=== PATIENT | male | born 1975 | race Caucasian/White ===

== ENCOUNTER 2024-01-01 18:35 | Inpatient (IN) | payer OTHER ==
[~2024-01-01] VITALS: Ht 177.8 cm; Wt 115.6 kg
[2024-01-01] MEDS ORDERED: Ondansetron HCl 2 MG / ML 2ML Vial IV PRN (18:45)
[2024-01-01] MEDS ORDERED: HYDROmorphone HCl/Pf 1MG SYR IV ONE ×2 (19:05→20:05)
[2024-01-01] MEDS ORDERED: NS 1,000 ML IV SCH ×3 (19:05→22:20)
[2024-01-01 19:07] LABS: BASOPHILS PERCENT AUTO 0 % (0-2); EOSINOPHILS ABSOLUTE AUTO 0.07 K/mm3 (0.00-0.68); EOSINOPHILS PERCENT AUTO 0 % (0-6); Hemoglobin 15.8 g/dL (13.5-17.5); IMMATURE GRAN ABSOLUTE AUTO 0.25 K/mm3 (0.00-0.10); IMMATURE GRAN PERCENT AUTO 1 % (0-1); LYMPHOCYTES ABSOLUTE AUTO 0.97 K/mm3 (0.84-5.20); LYMPHOCYTES PERCENT AUTO 3 % (21-46); MONOCYTES ABSOLUTE AUTO 1.81 K/mm3 (0.16-1.47); MONOCYTES PERCENT AUTO 6 % (4-13); Mean Corpuscular HGB Conc 33.6 g/dL (31.5-36.5); Mean Corpuscular Volume 86 fL (80-100); Mean Platelet Volume 9.8 fL (9.1-12.4); NEUTROPHILS ABSOLUTE AUTO 26.02 K/mm3 (1.96-9.15); NEUTROPHILS PERCENT AUTO 89 % (41-73); Platelet Count 324 K/mm3 (150-400); RDW Coefficient Variation 13.6 % (11.7-14.2); Red Blood Cell Count 5.45 M/mm3 (4.30-5.90); White Blood Cell Count 29.22 K/mm3 (4.00-11.30)
[2024-01-01 19:09] LABS: Source, Urine Clean Catch
[2024-01-01 19:13] LABS: Appearance, Urine Hazy (Clear); Blood, Urine 3+ (Neg); Glucose Qualitative, Urine 1+ (Neg); Ketones, Urine 4+ (Neg); Leukocyte Esterase, Urine 1+ (Neg); Nitrite, Urine Neg (Neg); Protein, Urine 3+ (Neg); Urobilinogen, Urine 4+ (Normal)
[2024-01-01 19:18] LABS: Bilirubin, Urine 2+ (Neg)
[2024-01-01 19:19] LABS: Color, Urine Amber (P-Yellow)
[2024-01-01 19:20] LABS: Amorphous Mod (0-Heavy); Bacteria Mod /hpf; Mucus Light (0-Heavy); Squamous Epithelial Cells Rare /hpf (Few)
[2024-01-01 19:33] LABS: Albumin, Blood 2.9 g/dL (3.4-5.0); Albumin/Globulin Ratio 0.5 (0.8-1.8); Bilirubin, Total 0.7 mg/dL (0.1-1.0); Bun/Creatinine Ratio 13.8 (12.0-20.0); Calcium, Blood 9.5 mg/dL (8.5-10.1); Creatinine, Blood 0.8 mg/dL (0.60-1.20); Globulin, Blood 6.1 g/dL (2.2-4.0)
[2024-01-01] MEDS ORDERED: Piperacillin/Tazobactam Sod 4.5 GM in NS 100 ML IV ONE (20:00)
[2024-01-01 20:03] LABS: Influenza A, PCR NEGATIVE (NEGATIVE); Influenza B, PCR NEGATIVE (NEGATIVE); Resp Syncytial Virus, PCR NEGATIVE (NEGATIVE); SARS-Cov-2 (COVID-19) PCR, MMC NEGATIVE (NEGATIVE)
[2024-01-01] MEDS ORDERED: Acetaminophen 325 MG TABLET PO ONE (22:50)
[2024-01-01] MEDS ORDERED: FentaNYL Citrate 50 MCG/ML 2 ML Injection IV ONE (23:20)
[2024-01-01 23:42] VITALS: BP 129/83
--- NOTE | 2024-01-02 00:26 | NUR ---
ARRIVAL TO UNIT AFTER RECEIVING REPORT FROM NANDO OTERO, PATIENT ARRIVED TO UNIT VIA ED [facility] AT APPROX 2335. PATIENT ALERT AND ORIENTED X4. ABLE TO STAND AND TRANSFER FROM [facility] TO RESTROOM AND TO BED. REPOSITIONS HIMSELF INDEPENDENTLY IN BED. REPORTS 5/10 R UPPER ABDOMINAL PAIN RADIATING TO HIS BACK. PAIN IS TOLERABLE AT THIS TIME WITH ADMINISTERED IV FENTANYL PRIOR TO TRANSFER TO UNIT. DENIES NAUSEA/VOMITING. ABD TENDER RUQ. HYPOACTIVE BOWEL TONES. TELEMETRY SHOWING SINUS/SINUS TACH 90s-110s. BP STABLE. DENIES CHEST PAIN, PRESSURE. ON ROOM AIR, SATs >90%. RESPIRATIONS EVEN, UNLABORED. REPORTS THAT HE IS A 1/2 PPD DAILY SMOKER. EDUCATED ON NO SMOKING POLICY. PATIENT DENIES ANY POSSESSION OF IGNITION SOURCES. OFFERED NICOTINE PATCH, DENIES AT THIS TIME. CALL LIGHT IN REACH.
[2024-01-02] MEDS ORDERED: FentaNYL Citrate 50 MCG/ML 2 ML Injection IV PRN ×2 (00:35→05:35)
[2024-01-02] MEDS ORDERED: Ondansetron HCl 2 MG / ML 2ML Vial IV PRN (00:35)
[2024-01-02] MEDS ORDERED: NS 1,000 ML IV SCH (00:35)
[2024-01-02 03:31] LABS: U Amphetamine Screen Not Detected; U Barbituate Screen Not Detected; U Benzodiazapine Screen Not Detected; U Buprenorphine Screen Not Detected; U Cannabinoids Screen Not Detected; U Cocaine Screen Not Detected; U Methadone Screen Not Detected; U Methamphetamine Screen Not Detected; U Opiates Screen Not Detected; U Oxycodone Screen Not Detected; U Phencyclidine Screen Not Detected
[2024-01-02 03:48] VITALS: BP 116/80
[2024-01-02 04:33] LABS: Hematocrit 42.1 % (37.0-53.0); Hemoglobin 13.9 g/dL (13.5-17.5); Mean Corpuscular HGB 29.1 pg (26.0-34.0); Mean Corpuscular Volume 88 fL (80-100); Mean Platelet Volume 10.1 fL (9.1-12.4); Platelet Count 304 K/mm3 (150-400); RDW Coefficient Variation 13.7 % (11.7-14.2); RDW Standard Deviation 44.4 fL (35.1-46.3); Red Blood Cell Count 4.77 M/mm3 (4.30-5.90); White Blood Cell Count 25.05 K/mm3 (4.00-11.30)
[2024-01-02 04:56] LABS: CHOL/HDL RATIO 4.7; Cholesterol 71 mg/dL (50-200); HDL Cholesterol 15 mg/dL (>39); LDL/HDL RATIO 2.5; Low Density Lipoprotein Chol 37 mg/dL (0-110); Triglycerides 96 mg/dL (30-160); Very Low Density Lipoprot Chol 19 mg/dL (6-32)
[2024-01-02 05:03] LABS: Ethanol (Alcohol), Blood, Med <3 mg/dL
[2024-01-02 05:09] LABS: BAND PERCENT MAN 8 % (0-8); BASOPHILS PERCENT MAN 0 % (0-2); EOSINOPHILS PERCENT MAN 0 % (0-6); LYMPHOCYTES ABSOLUTE MAN 1.25 K/mm3 (0.84-5.20); LYMPHOCYTES PERCENT MAN 5 % (21-46); MONOCYTES ABSOLUTE MAN 2.75 K/mm3 (0.16-1.47); MONOCYTES PERCENT MAN 11 % (4-13); NEUTROPHILS ABSOLUTE MAN 21.04 K/mm3 (1.96-9.15); SEG NEUTROPHILS PERCENT MAN 76 % (41-73); TOTAL CELLS COUNTED 100
[2024-01-02 05:15] LABS: Albumin, Blood 2.3 g/dL (3.4-5.0); Albumin/Globulin Ratio 0.4 (0.8-1.8); Bilirubin, Total 0.5 mg/dL (0.1-1.0); Bun/Creatinine Ratio 14.6 (12.0-20.0); Calcium, Blood 8.6 mg/dL (8.5-10.1); Creatinine, Blood 0.82 mg/dL (0.60-1.20); Globulin, Blood 5.2 g/dL (2.2-4.0); Potassium, Blood 3.8 mmol/L (3.5-5.5); Total Protein, Blood 7.5 g/dL (6.4-8.2)
--- NOTE | 2024-01-02 05:16 | NUR ---
SHIFT SUMMARY NO ACUTE EVENTS SINCE ARRIVAL TO UNIT. PATIENT SLEPT OR RESTED QUIETLY THROUGHOUT. EASILY AROUSABLE WITH VERBAL STIMULI. COMMUNICATES NEEDS EFFECTIVELY. CONTINUING TO REPORT R ABD PAIN RADIATING TO BACK. PER PATIENT, ORDERED IV FENTANYL DOES NOT MANAGE PAIN LONG ENOUGH. KPAD APPLIED WITH SOME RELIEF. MD FABIAN ALVAREZ AT BEDSIDE. RECEIVED ORDER TO CHANGE IV FENTANYL TO Q3H PRN AND FOR IV DILAUDID 1-2MG Q4H PRN. PER MD, PATIENT ABLE TO ADVANCE DIET TO SMALL AMOUNTS OF WATER AND ICE CHIPS TOLERATED. DENIES N/V. TELEMETRY SHOWING SINUS 90s. BP STABLE. DENIES CHEST PAIN, PRESSURE. ON ROOM AIR, SATs >90%. RESPIRATIONS EVEN, UNLABORED AT REST. DOES EXPERIENCE MILD SHORTNESS OF BREATH WITH MOBILITY. PATIENT IS A SBA FOR CORD, DEVICE MANAGEMENT WITH MOBILITY. REPOSITIONS HIMSELF INDEPENDENTLY IN BED. VOIDING. NO BM THIS SHIFT. CALL LIGHT IN REACH. WILL CONTINUE TO MONITOR AND REPORT TO ONCOMING RN.
[2024-01-02] MEDS ORDERED: HYDROmorphone HCl/Pf 1MG SYR IV PRN (05:30)
[2024-01-02 07:31] VITALS: BP 125/76
[2024-01-02] MEDS ORDERED: Enoxaparin 40 MG/0.4 ML SYR SC SCH (09:00)
[2024-01-02] MEDS ORDERED: CefTRIAXone Sodium 1,000 MG in NS 100 ML IV SCH (09:00)
--- NOTE | 2024-01-02 10:58 | NUR ---
AM SUMMARY PATIENT IS ALERT AND ORIENTED X4. HE WAS COMPLAINING OF FEELING HOT BUT TEMPERATURE WAS 97.8 WHEN CHECKED ORALLY. PATIENT IS ON COOLING PAD. HE WAS SWEATING WHEN HE SAID HE FELT WARM. PATIENT RATED PAIN THIS MORNING AROUND 8 AT A 1 OUT OF 10. HOUR LATER, REPORTED PAIN WAS A 5-6 WITH REQUEST OF PAIN MANAGEMENT. NURSE TEJADA WAS ABLE TO GIVE PATIENT DILAUDID. DR. CRUZ SAW PATIENT AND INFORMED HIM THAT CAUSE OF PANCREATITIS IS UNKNOWN AND THAT IF THE PATIENT WANTED TO ATTEMPT CLEAR LIQUIDS HE COULD. PATIENT HAS STARTED WITH WATER AND ICE CHIPS AND WILL BE TRYING CLEAR BROTH AT LUNCH. GLUCOSE WAS 132 AT 0730 THIS MORNING. PT DENIED RUQ PAIN, NAUSEA AND VOMITING. CALL LIGHT WITHIN REACH. WILL CONTINUE TO MONITOR.
[2024-01-02] MEDS ORDERED: HYDROcodone 5-APAP 325 TAB PO PRN (11:30)
[2024-01-02 11:49] VITALS: BP 122/81
[2024-01-02 16:26] VITALS: BP 116/76
--- NOTE | 2024-01-02 16:46 | NUR ---
SHIFT SUMMARY PATIENT ATE LEMON POPSICLE AND BROTH FOR LUNCH, TOLERATED WELL. WAS IN ROOM AT BEDSIDE ALL DAY, AWARE OF PLAN OF CARE. HE WAS IN PAIN AROUND 1400, NURSE TERRELL GAVE PRESCRIBED DILAUDID. AFTER PATIENT WAS MEDICATED HE TOOK A SHOWER. PATIENT TRANSITIONED TO MED STATUS WITH NO TELE. PATIENT IS ABLE TO AMBULATE INDEPENTLY IN THE ROOM. NO COMPLAINTS OF SOB OR RUQ PAIN. NURSE TEJADA GAVE REPORT TO NURSE ANITRA OTERO. PATIENT TRANSFERRED VIA WHEELCHAIR, ALL BELONGINGS WITH PATIENT AND .
[2024-01-02] MEDS ORDERED: Prinivil10 MG PO (17:25)
[2024-01-02] MEDS ORDERED: ATOR10 PO (17:25)
[2024-01-02] MEDS ORDERED: METF500 PO (17:25)
--- NOTE | 2024-01-02 18:20 | NUR ---
REPORT RECEIVED FROM SHANNA TEJADA IN PCU. ASSUMED CARE AT 1635. PATIENT A&OX4, COOPERATIVE WITH CARE. INDEPENDENTLY TRANSFERS. DILAUDID ADMINISTERED AT 1758 PER PROTOCOL. PATIENT CURRENTLY RESTING IN BED. AT BEDSIDE. HOME MEDICATIONS ADDED TO LIST. PATIENT DENIES CP/PRESSURE, HEADACHE, DIZZINESS, OR SOB. 2 NURSE SKIN CHECK PERFORMED WITH KELLY OTERO. DANIELA FRIEDMAN 01/02/24
[2024-01-02 20:01] VITALS: BP 134/86
[2024-01-03 01:34] VITALS: BP 130/83
[2024-01-03] MEDS ORDERED: NAPR500 PO (04:20)
[2024-01-03] MEDS ORDERED: Flonase 0.05% N16 GM (04:22)
[2024-01-03 05:05] VITALS: BP 135/77
--- NOTE | 2024-01-03 05:47 | NUR ---
SHIFT SUMMARY: PT CONTINUES TO NEED PAIN MEDS THROUGHOUT THE NIGHT. ALTERNATING WITH NORCO AND DILAUDID. PT REPORTED HE TAKES THE MEDICATIONS WHEN PAIN LEVEL IS A 3-4 BECAUSE IF HE DOES NOT TAKE IT THAT WAY IT WILL QUICKLY ESCALATE TO A LEVEL OF 6. NO OTHER COMPLAINTS. PT URINATING WELL, NO BM BUT REPORTS HE IS PASSING GAS.
[2024-01-03 05:56] LABS: Hematocrit 41.9 % (37.0-53.0); Hemoglobin 13.6 g/dL (13.5-17.5); Mean Corpuscular HGB 29.2 pg (26.0-34.0); Mean Corpuscular HGB Conc 32.5 g/dL (31.5-36.5); Mean Corpuscular Volume 90 fL (80-100); Mean Platelet Volume 10.3 fL (9.1-12.4); Platelet Count 286 K/mm3 (150-400); RDW Coefficient Variation 14.2 % (11.7-14.2); RDW Standard Deviation 46.7 fL (35.1-46.3); Red Blood Cell Count 4.66 M/mm3 (4.30-5.90); White Blood Cell Count 17.78 K/mm3 (4.00-11.30)
[2024-01-03 06:26] LABS: Albumin, Blood 2.2 g/dL (3.4-5.0); Anion Gap 9 mmol/L (3-11); Blood Urea Nitrogen 15 mg/dL (8-24); Bun/Creatinine Ratio 24.4 (12.0-20.0); CO2, Blood 28 mmol/L (21-32); Calcium, Blood 9.1 mg/dL (8.5-10.1); Chloride, Blood 106 mmol/L (98-108); Creatinine, Blood 0.61 mg/dL (0.60-1.20); Glomerular Filtration Rate 120 (60-); Glucose, Blood 168 mg/dL (70-99); Magnesium, Blood 2.2 mg/dL (1.6-2.4); Phosphorus, Blood 3.5 mg/dL (2.5-4.9); Potassium, Blood 3.8 mmol/L (3.5-5.5); Sodium, Blood 139 mmol/L (136-145)
[2024-01-03 07:59] VITALS: BP 146/85
[2024-01-03] MEDS ORDERED: Cyclobenzaprine HCl 10 MG Tab PO PRN (11:00)
[2024-01-03] MEDS ORDERED: HYDROcodone 5-APAP 325 TAB PO PRN (11:00)
[2024-01-03 15:58] VITALS: BP 113/73
--- NOTE | 2024-01-03 16:14 | NUR ---
SHIFT SUMMARY A&OX4, COOPERATIVE WITH CARE. ACUTE PAIN TO "ACROSS ABDOMEN AND UP THE BACK" PER PATIENT REPORT. NORCO Q4 AND DILAUDID Q4 ADMINISTERED PER EMAR. NO COMPLAINTS OF CP/PRESSURE, HEADACHE, DIZZINESS, OR SOB. DIET ADVANCED TO FULL LIQUID TOLERATED. PATIENT TOLERATED CRACKERS. AT BEDSIDE. BED IN THE LOWEST POSITION. CALL LIGHT WITHIN REACH.
[2024-01-03] MEDS ORDERED: METFORMIN ER G500 MG PO (17:13)
[2024-01-03 19:20] VITALS: BP 129/83
[2024-01-04 03:01] VITALS: BP 153/83
[2024-01-04 06:29] LABS: Hematocrit 42.6 % (37.0-53.0); Hemoglobin 13.9 g/dL (13.5-17.5); Mean Corpuscular HGB 29.4 pg (26.0-34.0); Mean Corpuscular HGB Conc 32.6 g/dL (31.5-36.5); Mean Corpuscular Volume 90 fL (80-100); Mean Platelet Volume 10.5 fL (9.1-12.4); Platelet Count 287 K/mm3 (150-400); RDW Coefficient Variation 14.1 % (11.7-14.2); RDW Standard Deviation 46.6 fL (35.1-46.3); Red Blood Cell Count 4.73 M/mm3 (4.30-5.90); White Blood Cell Count 12.44 K/mm3 (4.00-11.30)
[2024-01-04 07:05] LABS: Albumin, Blood 2.2 g/dL (3.4-5.0); Anion Gap 7 mmol/L (3-11); Blood Urea Nitrogen 12 mg/dL (8-24); CO2, Blood 32 mmol/L (21-32); Calcium, Blood 9.2 mg/dL (8.5-10.1); Chloride, Blood 103 mmol/L (98-108); Creatinine, Blood 0.67 mg/dL (0.60-1.20); Glomerular Filtration Rate 117 (60-); Glucose, Blood 177 mg/dL (70-99); Magnesium, Blood 2.3 mg/dL (1.6-2.4); Phosphorus, Blood 3.9 mg/dL (2.5-4.9); Potassium, Blood 3.6 mmol/L (3.5-5.5); Sodium, Blood 138 mmol/L (136-145)
[2024-01-04 08:12] VITALS: BP 130/86
[2024-01-04] MEDS ORDERED: OxyCODONE 5 mg/Acetamin 325 mg TABLET PO PRN (09:30)
[2024-01-04 11:08] LABS: HEPATITIS A ANTIBODY, IGM Negative (Negative); HEPATITIS B CORE ANTIBODY, IGM Negative (Negative); HEPATITIS B SURFACE ANTIGEN Negative (Negative); HEPATITIS C AB CIA INTERP Negative (Negative); HEPATITIS C ANTIBODY CIA INDEX 0.07 IV
--- NOTE | 2024-01-04 11:13 | NUR ---
DR CHANGED NORCO TO PERCOCET. PT STATES HAS BEEN 1 HR AND FEELS LIKE IT WORKING BETTER. WILL MONITOR
[2024-01-04 15:55] VITALS: BP 138/81
[2024-01-04] MEDS ORDERED: ONDA4ODT MM (16:06)
[2024-01-04] MEDS ORDERED: Percocet 5-3251 EACH PO (16:06)
[2024-01-04] MEDS ORDERED: BASAGLAR K100 UNIT/1 SC (16:06)
--- NOTE | 2024-01-04 17:29 | NUR ---
DISCHARGE REVIEWD WITH PT AND SPOUSE/ PT VERBALIZED UNDERSTANDING MEDS AND INST. IV PULLED INTACT. NO TELE. PT WALKED TO DOOR AT 1730
--- NOTE | 2024-01-04 17:31 | NUR ---
1600 DR TO ROOM. GAVE PT RX FOR PERCOCET FOR FILLING AT [facility]. TOOK TO HI.
== END 2024-01-04 18:01 | disposition home or self-care (01) | DRG 439 ==
LOC: ER 18:35 → PCU 18:36 → MEDS 18:36 → PCU 18:36 → MEDS 01-02 16:35
PROVIDERS: Emergency Medicine; Internal Medicine; ADMIT Internal Medicine
DX: K85.90 Acute pancreatitis without necrosis or infection, unspecified (principal); E87.1 Hypo-osmolality and hyponatremia; K90.3 Pancreatic steatorrhea; R65.10 Systemic inflammatory response syndrome (SIRS) of non-infectious origin without acute organ dysfunction; E11.9 Type 2 diabetes mellitus without complications; E78.1 Pure hyperglyceridemia; K76.0 Fatty (change of) liver, not elsewhere classified; I10 Essential (primary) hypertension
CPT/HCPCS: 0241U; 36415; 71046; 74177; 76705; 80053; 80061; 80069; 80074; 81001; 82947; 83036; 83605; 83690; 83735; 84484; 85025; 85027; 87040; 87086; 93005; 93010; 96361; 96365-59; 96375; 96376; 99285-25; A9270; G0378; J0696; J1170; J1650; J2405; J2543; J3010; J7030; Q9967